=== PATIENT | female | born 1965 | race Caucasian/White ===

== ENCOUNTER → 2020-01-03 | Outpatient (CLI) | payer BC | END | disposition home or self-care (01) | LOC: COVID19 15:59 | PROVIDERS: ATTEND Physician Assistant Medical | DX: U07.1 COVID-19 (principal) ==

== ENCOUNTER 2023-07-01 20:47 | Emergency (ER) | payer BC ==
[~2023-07-01] VITALS: Ht 170.1 cm; Wt 81.6 kg
[2023-07-01] MEDS ORDERED: Tdap Vaccine 0.5 ML SYR (Adult Vaccine) IM ONE (21:20)
[2023-07-01] MEDS ORDERED: Ondansetron Hydrochloride 4 MG TAB SL ONE (21:20)
[2023-07-01] MEDS ORDERED: Acetaminophen/Hydrocodone 5 MG/325 MG TABLET PO ONE (21:20)
[2023-07-01] MEDS ORDERED: Amoxicillin/Clavulanate Pota 875 MG TAB PO ONE (21:20)
[2023-07-01] MEDS ORDERED: AMOX-CLAV 875-1 EACH PO (21:58)
== END 2023-07-01 22:10 | disposition home or self-care (01) ==
LOC: ED 20:47
DX: S61.411A Laceration without foreign body of right hand, initial encounter (principal); W54.0XXA Bitten by dog, initial encounter; Y93.89 Activity, other specified; Y92.89 Other specified places as the place of occurrence of the external cause; Y99.8 Other external cause status